=== PATIENT | male | born 1980 | race Caucasian/White ===

== ENCOUNTER 2022-05-27 13:34 | Inpatient (IN) | payer OTHER ==
[2022-05-27 14:12] VITALS: BMI 24.3
[2022-05-27] MEDS ORDERED: ONDANSETRON *ODT* 4 MG TABLET SL PRN (15:49)
[2022-05-27] MEDS ORDERED: DICYCLOMINE HCL 10 MG CAPSULE PO PRN (15:49)
[2022-05-27] MEDS ORDERED: hydrOXYzine PAMOATE 25 MG CAPSULE (FP) PO PRN (15:49)
[2022-05-27] MEDS ORDERED: ACETAMINOPHEN 325 MG TABLET (FP) PO PRN ×2 (15:49)
[2022-05-27] MEDS ORDERED: IBUPROFEN 400 MG TABLET (FP) PO PRN (15:49)
[2022-05-27] MEDS ORDERED: METHOCARBAMOL 500 MG TABLET PO PRN (15:49)
[2022-05-27] MEDS ORDERED: POLYETHYLENE GLYCOL (HEALTHYLAX) 3350 17 GM PACKET PO PRN (15:49)
[2022-05-27] MEDS ORDERED: BENZOCAINE/MENTHOL (CHLORASEPTIC ) LOZENGE MM PRN (15:49)
[2022-05-27] MEDS ORDERED: LOPERAMIDE HCL 2 MG CAPSULE PO PRN (15:49)
[2022-05-27] MEDS ORDERED: IBUPROFEN 600 MG TABLET (FP) PO PRN (15:49)
[2022-05-27] MEDS ORDERED: BISMUTH SUBSALICYLATE 524 MG/30 ML PO PRN (15:49)
[2022-05-27] MEDS ORDERED: MAGNESIUM HYDROX 2400MG/30ML ORAL SUSPENSION 30 ML CUP PO PRN (15:49)
[2022-05-27] MEDS ORDERED: NALOXONE HCL (KLOXXADO) 8 MG SPRAY NS PRN (15:49)
[2022-05-27] MEDS ORDERED: MAG HYDROX/AL HYDROX/SIMETH 30 ML UNIT-DOSE CUP PO PRN (15:49)
[2022-05-27] MEDS ORDERED: NICOTINE 10 MG CARTRIDGE (INHALER) IH PRN (15:49)
[2022-05-27] MEDS: PRENATAL VITAMINS W/ FOLIC ACID TABLET (FP) PO SCH (18:21)
[2022-05-27] MEDS ORDERED: MELATONIN 5 MG TABLETS PO SCH (22:00)
[2022-05-27] MEDS ORDERED: THIAMINE HCL 100 MG TABLET (FP) PO SCH (22:00)
[2022-05-28 09:23] VITALS: BP 148/92; PULSE 73; RESP 17; TEMP 97.8
[2022-05-28] MEDS: PRENATAL VITAMINS W/ FOLIC ACID TABLET (FP) PO SCH (10:10)
[2022-05-28 11:25] LABS: HEMATOCRIT 43.7 % (35.4-49); HEMOGLOBIN 14.9 GM/dL (11.7-16.9); MCH 31.2 pg (25.7-33.7); MCHC 34.2 g/dl (32.0-35.9); MEAN CELL VOLUME 91.3 fl (80-96); MEAN PLT VOLUME 7.6 fl (7.5-11.1); PLATELET COUNT 324 10^3/uL (134-434); RBC 4.78 M/mm3 (4.00-5.60); RDW 12.6 % (11.9-15.9); WHITE BLOOD COUNT 4.8 K/mm3 (4.0-10.0)
[2022-05-28 11:48] LABS: CALCIUM 9.2 mg/dL (8.5-10.1)
[2022-05-28 11:49] LABS: ALBUMIN 3.6 g/dl (3.4-5.0)
[2022-05-28 11:52] LABS: CREATININE 0.9 mg/dL (0.55-1.3)
[2022-05-28 11:53] LABS: TOT PROT 6.7 g/dl (6.4-8.2)
[2022-05-28 11:54] LABS: BILIRUBIN,TOTAL 0.4 mg/dL (0.2-1)
== END 2022-05-28 13:23 | disposition home or self-care (01) | DRG 775 ==
LOC: YASAS 13:34 → Y6N 16:37
PROVIDERS: ADMIT Allergy & Immunology; ATTEND Surgery
PROC: HZ2ZZZZ Detoxification Services for Substance Abuse Treatment (ICD-10-PCS; principal; 2022-05-27)
DX: F10.230 Alcohol dependence with withdrawal, uncomplicated (principal); F12.20 Cannabis dependence, uncomplicated; F17.210 Nicotine dependence, cigarettes, uncomplicated; Z28.310 Unvaccinated for COVID-19; Z28.9 Immunization not carried out for unspecified reason
CPT/HCPCS: 36415; 80053; 85027; 86780; 87811; C9803-CS; U0003; U0005